=== PATIENT | male | born 1950 | race Caucasian/White ===

== ENCOUNTER 2021-07-13 19:50 | Emergency (ER) | payer MEDICARE, OTHER ==
[~2021-07-13 19:50] MED LIST: Dexamethasone/Tobramycin 0.1-0.3% Ophth Susp 2.5 ML Bottle ONE; Fluorescein 1 MG Ophth Strip ONE; Tetracaine HCl/PF 0.5% 4 ML Bottle ONE
[2021-07-13 20:01] VITALS: BP 124/69; PULSE 91
--- NOTE | 2021-07-13 20:32 | EDM.PDOC ---
ED HPI GENERAL MEDICAL PROBLEM - General Chief Complaint: General Stated Complaint: Foreign body in eye Time Seen by Provider: 07/13/21 20:00 Source of Information: Reports: Patient History Limitations: Reports: No Limitations - History of Present Illness INITIAL COMMENTS - FREE TEXT/NARRATIVE: Manan is a 71 yo male who presents to the ED with concerns of something in his left eye. States he was going from the house to the garage and felt as if something got into his eye. States he did go try to rinse it out, which he felt was unsuccessful. Admits he has been rubbing it a lot. Has been sick with common cold symptoms as well and earlier today layed down to take a nap and had some junk come out of both eyes. Denies any vision loss presently, states it is a little blurry in the left eye. - Related Data Allergies Allergy/AdvReac Type Severity Reaction Status Date / Time No Known Allergies Allergy Verified 07/13/21 19:53 Home Meds: Home Meds Multivitamin [Multivitamins] 1 each PO DAILY 05/14/14 [History] Naproxen Sodium [Aleve] 224,400 mg PO DAILY 05/14/14 [History] Cholecalciferol (Vitamin D3) [Vitamin D] 5,000 units PO DAILY 07/13/21 [History] atorvaSTATin [Lipitor] 20 mg PO DAILY 07/13/21 [History] Past Medical History Cardiovascular History: Reports: High Cholesterol, Hypertension - Past Surgical History Musculoskeletal Surgical History: Reports: Other (See Below) Other Musculoskeletal Surgeries/Procedures:: back surgery Social & Family History - Tobacco Use Tobacco Use Status *Q: Never Tobacco User ED ROS GENERAL - Review of Systems Review Of Systems: See Below Constitutional: Denies: Fever, Chills HEENT: Reports: Eye Discharge, Eye Pain, Glasses, Sinus Problem Respiratory: Reports: Cough. Denies: Shortness of Breath Cardiovascular: Reports: No Symptoms Skin: Reports: No Symptoms ED EXAM, GENERAL - Physical Exam Exam: See Below Exam Limited By: No Limitations General Appearance: Alert, WD/WN, No Apparent Distress Eye Exam: Left Eye: Conjunctival Injection, Foreign Body, Bilateral Eye: EOMI, PERRL Ears: Normal External Exam, Normal Canal, Normal TMs Nose: Normal Inspection, Nasal Drainage (mucoid drainage) Throat/Mouth: Normal Inspection, Other (erythema to posterior pharynx) Head: Atraumatic, Normocephalic Neck: Normal Inspection, Supple Respiratory/Chest: No Respiratory Distress, Lungs Clear, Normal Breath Sounds, No Accessory Muscle Use ED GENERAL MEDICAL PROCEDURES - Additional/Other Procedure(s) Other (Free Text) Procedure(s): Fluoroscein stain of the left eye completed. Tetracaine eye drops initially used for local anesthesia. Ropey, purulent discharge noted. Small fine piece of foreign body removed to the 10 o'clock position. Tobradex eye drops X 2 instilled. No complications. Course - Vital Signs Last Recorded V/S: Last Vital Signs Temp 99.9 F 07/13/21 20:00 Pulse 91 07/13/21 20:00 Resp 18 07/13/21 20:00 BP 124/69 07/13/21 20:00 Pulse Ox 94 L 07/13/21 20:00 Departure - Departure Time of Disposition: 20:32 Disposition: Home, Self-Care 01 Clinical Impression: Ocular inflammation Conjunctivitis of left eye Qualifiers: Conjunctivitis type: acute Acute conjunctivitis type: bacterial Qualified Code(s): H10.32 - Unspecified acute conjunctivitis, left eye Foreign body of left eye Qualifiers: Encounter type: initial encounter Qualified Code(s): T15.92XA - Foreign body on external eye, part unspecified, left eye, initial encounter - Discharge Information Referrals: PCP,None [Primary Care Provider] - Additional Instructions: 1) Tobradex eye drops - 2 drops 4 times a day for 7 days 2) Watch vision and if any changes, advise following up with Dr. Colon 3) Refrain from wearing any contacts, may use glasses 4) Stay away from bright lights 5) May continue to use over the counter decongestants, etc... for cold. Sepsis Event Note (ED) - Focused Exam Vital Signs: Vital Signs Temp Pulse Resp BP Pulse Ox 07/13/21 20:00 99.9 F 91 18 124/69 94 L - Problem List & Annotations (1) Conjunctivitis of left eye SNOMED Code(s): 4170496 Code(s): H10.9 - UNSPECIFIED CONJUNCTIVITIS Status: Acute Current Visit: Yes Qualifiers: Conjunctivitis type: acute Acute conjunctivitis type: bacterial Qualified Code(s): H10.32 - Unspecified acute conjunctivitis, left eye (2) Foreign body of left eye SNOMED Code(s): 26874041 Code(s): T15.92XA - FOREIGN BODY ON EXTERNAL EYE, PART UNSP, LEFT EYE, INIT Status: Acute Current Visit: Yes Qualifiers: Encounter type: initial encounter Qualified Code(s): T15.92XA - Foreign body on external eye, part unspecified, left eye, initial encounter (3) Ocular inflammation SNOMED Code(s): 376550336 Code(s): H57.89 - OTHER SPECIFIED DISORDERS OF EYE AND ADNEXA Status: Acute Current Visit: Yes - Assessment/Plan Plan: See procedure note and additional instructions for treatment and patient instructions.
[2021-07-13] MEDS ORDERED: Tetracaine HCl/PF 0.5% 4 ML Bottle EYELF ONE (20:41)
[2021-07-13] MEDS ORDERED: Fluorescein 1 MG Ophth Strip EYELF ONE (20:42)
[2021-07-13] MEDS ORDERED: Dexamethasone/Tobramycin 0.1-0.3% Ophth Susp 2.5 ML Bottle EYELF SCH (20:45)
== END 2021-07-13 20:47 | disposition home or self-care (01) ==
LOC: CC.ED 19:50
DX: T15.92XA Foreign body on external eye, part unspecified, left eye, initial encounter (principal); H10.32 Unspecified acute conjunctivitis, left eye; H05.00 Unspecified acute inflammation of orbit; E78.00 Pure hypercholesterolemia, unspecified; I10 Essential (primary) hypertension
CPT/HCPCS: 65205; 99283; 99283-25; A9270-GY